=== PATIENT | male | born 1965 | race Caucasian/White ===

== ENCOUNTER 2022-10-01 13:53 | Inpatient (IN) | payer OTHER ==
[~2022-10-01] VITALS: Ht 172.7 cm; Wt 81.6 kg
[2022-10-01] MEDS ORDERED: NACL 0.9% 1,000 ML IV ONE ×2 (14:15→16:10)
[2022-10-01 14:19] VITALS: BP 132/71
--- NOTE | 2022-10-01 14:35 | NUR ---
[facility] WITH PT, REPORT # [id number]
[2022-10-01 14:51] LABS: BASOPHILS % (AUTO) 0.4 % (0.0-2.0); EOSINOPHILS % (AUTO) 0.2 % (0.0-4.0); HEMATOCRIT 47.7 % (36-52); HEMOGLOBIN 16.3 g/dL (12.0-18.0); LYMPHOCYTES # (AUTO) 0.8 K/uL (2.0-11.5); LYMPHOCYTES % (AUTO) 7.7 % (20.5-51.1); MEAN CORPUSCULAR HEMOGLOBIN 30 pg (27-31); MEAN CORPUSCULAR HGB CONC 34 g/dL (33-37); MEAN CORPUSCULAR VOLUME 88.1 fL (80-94); MONOCYTES # (AUTO) 0.6 K/uL (0.8-1.0); MONOCYTES % (AUTO) 5.6 % (1.7-9.3); NEUTROPHILS # (AUTO) 8.6 K/uL (1.8-7.7); NEUTROPHILS % (AUTO) 86.1 % (42.2-75.2); PLATELET COUNT (AUTO) 226 K/uL (140-450); RED BLOOD CELL COUNT(AUTO) 5.41 MIL/uL (4.20-6.10); RED CELL DISTRIBUTION WIDTH 13.9 % (11.6-13.7); WHITE BLOOD COUNT (AUTO) 9.9 K/uL (4.8-10.8)
[2022-10-01 14:58] LABS: ANION GAP 18.1 (8-16); CREATININE 1.2 mg/dL (0.6-1.3); POTASSIUM 4.1 mmol/L (3.5-5.1)
[2022-10-01 15:18] LABS: ACETONE, SERUM NEGATIVE (NEGATIVE)
--- NOTE | 2022-10-01 16:10 | NUR ---
HR STILL [phone]. PT DENIES PAIN AT THIS TIME. DR ALLEN AWARE. NS BOLUS ORDER CARRIED OUT
[2022-10-01] MEDS ORDERED: ASPIRIN 325 MG TAB PO ONE (18:00)
[2022-10-01] MEDS ORDERED: POTASSIUM CHLORIDE 10 MEQ TABER PO PRN (18:10)
[2022-10-01] MEDS ORDERED: INSULIN LISPRO SLIDING SCALE 100 UNITS/ML VIAL SUBQ PRN (18:10)
[2022-10-01] MEDS ORDERED: ONDANSETRON 4 MG/2 ML VIAL IVP PRN (18:10)
[2022-10-01] MEDS ORDERED: DOCUSATE SODIUM 100 MG GELCAP PO PRN (18:10)
[2022-10-01] MEDS ORDERED: METF-1139 PO (18:10)
[2022-10-01] MEDS ORDERED: MAG SULF 2000 MG/WATER PREMIX 50 ML IV PRN (18:10)
[2022-10-01] MEDS ORDERED: MORPHINE SULFATE 2 MG/ML SYR IVP PRN (18:10)
[2022-10-01] MEDS ORDERED: LORazepam 2 MG/ML VIAL IVP PRN (18:10)
[2022-10-01] MEDS ORDERED: DEXTROSE 50% 50 ML SYR IVP PRN (18:10)
[2022-10-01] MEDS ORDERED: ACETAMINOPHEN 325 MG TAB PO PRN (18:10)
[2022-10-01] MEDS ORDERED: ZOLPIDEM 10 MG TAB PO PRN (18:10)
[2022-10-01] MEDS ORDERED: LISI5TAB18 PO (18:10)
--- NOTE | 2022-10-01 18:44 | NUR ---
PT AMBULATED TO ER BED 8
--- NOTE | 2022-10-01 19:23 | NUR ---
REPORT GIVEN TO VESNA ELLIS, TRANSFER OF TIME AT THIS TIME
--- NOTE | 2022-10-01 20:10 | NUR ---
57YR OLD MALE BIB BY CUSTODY FOR PREBOOK MED CLEAR. PT WAS AT [facility] HAVING CP . PT IS A ADMIT TO HOSPITAL. DENIES CP OR SOB CURRENTLY. IS A&OX4. ON BEDSIDE PAINT POURER. RESP ARE EVEN AND UNLABORED. SKIN WARM AND DRY. IS SR ON MONITOR. NKDA DM HTN
--- NOTE | 2022-10-01 20:35 | NUR ---
Patient's Plan of Care was discussed and reviewed with BANDAR ELLIS:
--- NOTE | 2022-10-01 20:35 | NUR ---
RECEIVED REPORT FROM ER NURSE FOR CONTINUITY OF CARE. PT IS AWAKE, A&O X4, KYRGYZ SPEAKING BUT CAN UNDERSTAND ROMANSH. CURRENTLY ON ROOM AIR SATING AT 97%. NO SIGNS OF ACUTE DISTRESS NOTED. PT STATES NO CHEST PAIN AT THIS TIME. IV SITE TO LEFT FOREARM 20 GAUGE, INTACT AND PATENT. OVERALL SKIN IS INTACT. PT IS ABLE TO AMBULATE AND IS CONTINENT. STATES HE HAS DAILY BM'S. ORIENTED PT TO BED ROOM, CALL LIGHT, TELEPHONE, AND BEDSIDE CONTROLS. CALL LIGHT WITHIN REACH, BED TO LOWEST POINT. WILL MONITOR FREQUENTLY THROUGHOUT SHIFT.
--- NOTE | 2022-10-01 20:40 | NUR ---
REPORT GIVEN TO BANDAR MENDENHALL
--- NOTE | 2022-10-01 20:40 | NUR ---
Patient will be admitted to care of DR RODRIGUEZ. Admited toTELE. Will go to room 112A. Belongings list completed. Report to BANDAR MENDENHALL.
--- NOTE | 2022-10-01 20:59 | NUR ---
The patient's care was reviewed and supervised by Mary Guaman RN.
--- NOTE | 2022-10-01 21:41 | NUR ---
PT BLOOD GLUCOSE LEVEL = 126, NO COVERAGE NEEDED. WILL CONTINUE MONITORING THE PT.
[2022-10-01] MEDS: BLOOD GLUCOSE MONITORING 1 DEV DEV FS SCH (21:45)
[2022-10-02] VITALS: BP 106/64
[2022-10-02 04:00] VITALS: BP 123/80
[2022-10-02] MEDS: BLOOD GLUCOSE MONITORING 1 DEV DEV FS SCH ×4 (06:35→20:36)
--- NOTE | 2022-10-02 06:35 | NUR ---
BLOOD GLUCOSE LEVEL = 116. NO COVERAGE NEEDED. WILL ENDORSE TO DAY SHIFT NURSE IN STABLE CONDITION.
--- NOTE | 2022-10-02 07:30 | NUR ---
RECEIVED REPORT FROM [employer] PROGRAMMER NURSE POC DISCUSSED. PT RESTING IN BED ON ROOM AIR WITH CHEST RISING AND FALLING EVEN AND UNLABORED. NO ACUTE S/S OF DISTRESS, ALL SAFETY MEASURES IN PLACE. CALL LIGHT WITHIN REACH.
[2022-10-02 07:37] LABS: BASOPHILS # (AUTO) 0.1 K/uL (0.00-0.22); EOSINOPHILS # (AUTO) 0.2 K/uL (0-0.4); EOSINOPHILS % (AUTO) 2.9 % (0.0-4.0); HEMATOCRIT 43.4 % (36-52); HEMOGLOBIN 14.6 g/dL (12.0-18.0); LYMPHOCYTES # (AUTO) 1.3 K/uL (2.0-11.5); LYMPHOCYTES % (AUTO) 19.4 % (20.5-51.1); MEAN CORPUSCULAR HEMOGLOBIN 30 pg (27-31); MEAN CORPUSCULAR HGB CONC 34 g/dL (33-37); MEAN CORPUSCULAR VOLUME 88.4 fL (80-94); MONOCYTES # (AUTO) 0.6 K/uL (0.8-1.0); NEUTROPHILS # (AUTO) 4.4 K/uL (1.8-7.7); NEUTROPHILS % (AUTO) 67.7 % (42.2-75.2); PLATELET COUNT (AUTO) 205 K/uL (140-450); RED BLOOD CELL COUNT(AUTO) 4.91 MIL/uL (4.20-6.10); RED CELL DISTRIBUTION WIDTH 13.8 % (11.6-13.7); WHITE BLOOD COUNT (AUTO) 6.5 K/uL (4.8-10.8)
[2022-10-02 07:51] LABS: CARBON DIOXIDE 27.1 mmol/L (21-32); CREATININE 0.9 mg/dL (0.6-1.3); POTASSIUM 4.1 mmol/L (3.5-5.1)
[2022-10-02 08:00] VITALS: BP 147/80
--- NOTE | 2022-10-02 09:06 | NUR ---
PATIENT HAS BEEN SCREENED AND CATEGORIZED MODERATE NUTRITION RISK. PATIENT WILL BE SEEN WITHIN 3-5 DAYS OF ADMISSION. REVIEWED BY ERIC EUGENE RD
[2022-10-02] MEDS: ASPIRIN 81 MG TAB.CHEW PO SCH (09:25)
[2022-10-02 12:00] VITALS: BP 126/78
--- NOTE | 2022-10-02 12:24 | NUR ---
PT BLOOD SUGAR IS 156, PT REFUSED INSULIN. EDUCATION PROVIDED. PT STILL DOES NOT WANT THE INSULIN.
--- NOTE | 2022-10-02 12:36 | NUR ---
DC PLANNING: PATIENT HAS AN ORDER STABLE FOR TRANSFER TO [facility]. FAXED TO [facility]. CM TO FOLLOW Addendum: 10/02/22 at 1606 by Liss Prince RN DC PLANNING : CALLED [facility] [phone] X3 ON HOLD MORE THAT 30 MIN UNABLE TO LEAVE MESSAGE. CM TO FOLLOW
[2022-10-02 16:00] VITALS: BP 117/79
--- NOTE | 2022-10-02 16:57 | NUR ---
PICKING UP PTS MEDICATION TO BE TAKEN TO PHARMACY FOR QAMAR MEDICATION
--- NOTE | 2022-10-02 18:23 | NUR ---
MEDICATION TAKEN TO PHARMACY, STICKER PLACED ON PT BINDER. PT STATES HE TAKES MEDICATION ONCE A DAY, PHARMACIST AWARE,
--- NOTE | 2022-10-02 18:46 | NUR ---
ALL NEEDS HAVE BEEN MET THROUGHOUT THE SHIFT, NO ACUTE S/S OF DISTRESS, DENIES CHEST PAIN. ALL SAFETY MEASURES IN PLACE
--- NOTE | 2022-10-02 19:05 | NUR ---
RECEIVED ENDORSEMENT FROM [employer] TRUCK DRIVER, PATIENT IN BED ALERT AND ORIENTED. FRISIAN SPEAKER BUT KNOWS ENOUGH YEMENI TO COMMUNICATE WITH STAFF. PATIENT ATE ENTIRE DINNER. NO NOTED S/S OF PAIN/DISCOMFORT. NO NOTED S/S OF RESPIRATORY DISTRESS. CALL LIGHT IS WITHIN REACH, ALL NEEDS MET AT THIS TIME. SIDE RAILS UP X 2 FOR SAFETY. [email or web address]
[2022-10-02 20:00] VITALS: BP 122/81
--- NOTE | 2022-10-02 23:05 | NUR ---
PATIENT REMAINS ASLEEP WITHOUT INCIDENT. NO S/S OF HYPER/HYPOGLYCEMIA. CALL LIGHT WITHIN REACH FOR ASSISTANCE AND NEEDS. SIDE RAILS UP X 2 FOR ADJUSTMENTS AND COMFORT. DENIES PAIN/DISCOMFORT AT THIS TIME. NO NOTED RESPIRATORY DISTRESS. [email or web address]
[2022-10-03] VITALS: BP 107/73
--- NOTE | 2022-10-03 01:15 | NUR ---
PATIENT REMAINS ASLEEP WITHOUT INCIDENT. CALL LIGHT WITHIN REACH FOR ASSISTANCE AND NEEDS. SIDE RAILS UP X 2 FOR ADJUSTMENTS AND COMFORT. NO NOTED RESPIRATORY DISTRESS. [email or web address]
--- NOTE | 2022-10-03 03:00 | NUR ---
PATIENT REMAINS ASLEEP WITHOUT INCIDENT. CALL LIGHT WITHIN REACH FOR ASSISTANCE AND NEEDS. SIDE RAILS UP X 2 FOR ADJUSTMENTS AND COMFORT. DENIES PAIN/DISCOMFORT AT THIS TIME. NO NOTED RESPIRATORY DISTRESS. [email or web address]
[2022-10-03 04:00] VITALS: BP 97/66
[2022-10-03] MEDS: BLOOD GLUCOSE MONITORING 1 DEV DEV FS SCH ×2 (06:35→11:16)
--- NOTE | 2022-10-03 07:00 | NUR ---
ENDORSED PATIENT CARE TO SAJAN MENDENHALL (REGISTRY), PATIENT WAS STABLE DURING SHIFT REPORT. [email or web address]
[2022-10-03 07:21] LABS: BASOPHILS % (AUTO) 0.6 % (0.0-2.0); EOSINOPHILS # (AUTO) 0.3 K/uL (0-0.4); EOSINOPHILS % (AUTO) 4.9 % (0.0-4.0); HEMOGLOBIN 15.1 g/dL (12.0-18.0); LYMPHOCYTES # (AUTO) 1.4 K/uL (2.0-11.5); LYMPHOCYTES % (AUTO) 22.9 % (20.5-51.1); MEAN CORPUSCULAR HEMOGLOBIN 30 pg (27-31); MEAN CORPUSCULAR HGB CONC 34 g/dL (33-37); MEAN CORPUSCULAR VOLUME 88.2 fL (80-94); MONOCYTES # (AUTO) 0.4 K/uL (0.8-1.0); MONOCYTES % (AUTO) 7.3 % (1.7-9.3); NEUTROPHILS # (AUTO) 3.8 K/uL (1.8-7.7); NEUTROPHILS % (AUTO) 64.3 % (42.2-75.2); PLATELET COUNT (AUTO) 207 K/uL (140-450); RED CELL DISTRIBUTION WIDTH 13.8 % (11.6-13.7)
[2022-10-03 07:24] LABS: ANION GAP 12.7 (8-16); CARBON DIOXIDE 27.9 mmol/L (21-32); CREATININE 0.9 mg/dL (0.6-1.3); POTASSIUM 3.6 mmol/L (3.5-5.1)
[2022-10-03 08:00] VITALS: BP 128/87
[2022-10-03] MEDS ORDERED: lisinopriL 5 MG TAB PO SCH (09:00)
[2022-10-03] MEDS ORDERED: METFORMIN 500 MG PO SCH (09:00)
[2022-10-03] MEDS ORDERED: ATORVASTATIN 20 MG TAB PO SCH (09:00)
[2022-10-03] MEDS ORDERED: NON-FORMULARY ITEM (Metformin HCl* (Glucophage Xr*) 500 MG) PO SCH (09:00)
[2022-10-03] MEDS ORDERED: METOPROLOL 25 MG TAB PO SCH (09:00)
[2022-10-03] MEDS: ASPIRIN 81 MG TAB.CHEW PO SCH (09:30)
[2022-10-03 09:40] LABS: BARBITURATE, URINE NEGATIVE ng/ml (NEG <=200); BENZODIAZEPINE, URINE NEGATIVE ng/mL (NEG <=200); CANNABINOID, URINE NEGATIVE ng/mL (NEG <=50); COCAINE, URINE NEGATIVE ng/mL (NEG <=300); OPIATE, URINE NEGATIVE ng/mL (NEG <=2000); PHENCYCLIDINE SCREEN,URINE NEGATIVE ng/mL (NEG <=25)
[2022-10-03 12:00] VITALS: BP 107/71
[2022-10-03 16:00] VITALS: BP 109/74
--- NOTE | 2022-10-03 17:18 | NUR ---
Patient discharge to home with a copy of all instructions and personal belongings. Intact 22 gauge catheter removal from right arm. Identification band removal.
== END 2022-10-03 16:47 | disposition home or self-care (01) | DRG 282 ==
LOC: MED 13:53 → MTU 18:06
PROVIDERS: ADMIT Family Medicine; ATTEND Family Medicine
DX: I21.3 ST elevation (STEMI) myocardial infarction of unspecified site (principal); E11.9 Type 2 diabetes mellitus without complications; F41.9 Anxiety disorder, unspecified; I10 Essential (primary) hypertension; R00.0 Tachycardia, unspecified; Z20.822 Contact with and (suspected) exposure to COVID-19; E87.8 Other disorders of electrolyte and fluid balance, not elsewhere classified; Z79.84 Long term (current) use of oral hypoglycemic drugs; Z79.899 Other long term (current) drug therapy
CPT/HCPCS: 36415; 80048; 80305; 82009; 82948; 83735; 84484; 85025; 85379; 87081; 93005; 96360; 96361; 99285; J1815